=== PATIENT | male | born 1955 | race Hispanic/Latino ===

== ENCOUNTER → 2019-06-17 | Day surgery (SDC) | payer OTHER ==
[2019-06-14 08:33] LABS: BASOPHILS % 0.6 % (0.0-1.0); EOSINOPHILS # (AUTO) 0.2 (0.0-0.4); EOSINOPHILS % 3.5 % (0.0-6.0); HEMOGLOBIN 15.5 g/dL (14.0-18.0); LYMPHOCYTES % 37.2 % (18.0-39.1); MEAN CORPUSCULAR HEMOGLOBIN 31.2 pg (28-32); MEAN CORPUSCULAR HGB CONC 35.2 g/dL (31-35); MEAN CORPUSCULAR VOLUME 88.5 fL (81-99); MONOCYTES # (AUTO) 0.6 (0.2-0.8); MONOCYTES % 10.5 % (4.4-11.3); NEUTROPHILS # (AUTO) 2.6 (2.1-6.9); PLATELET COUNT 181 x10e3/uL (140-360); RED BLOOD COUNT 4.97 x10e6/uL (4.3-5.7); RED CELL DISTRIBUTION WIDTH 12.4 % (11.7-14.4)
[~2019-06-17] MED LIST: ALLOPURINOL300 MG PO; FENTANYL CITRATE/PF 100MCG/2 ML INJ ONE; GABAPENTIN300 MG PO; GLIMEPIRIDE2 MG PO; LIDOCAINE HCL 2% LOCAL INJ 5 ML SDV VIAL INJ ONE; LISINOPRIL2.5 MG PO; LOSARTAN POTASS25 MG PO; METFORMIN HCL500 MG PO; MIDAZOLAM HCL 2 MG/2 ML VIAL ONE; PRAVASTATIN SOD20 MG PO; PROPOFOL IV EMULSION 10 MG/ML 20 ML VIAL ONE
--- OUTSIDE RECORDS SUMMARY | 2019-06-17 05:26 | XMS REPORT ---
Author Author [facility] Organization [facility] Address Unknown Phone Unavailable Care Team Providers Care Rubber Compounder Supervisor Name Role Phone Unavailable Unavailable Problems This patient has no known problems. Allergies, Adverse Reactions, Alerts This patient has no known allergies or adverse reactions. Medications This patient has no known medications. Results Test Description Test Time Test Comments Text Results Atomic Results Result Comments SURGICAL SPECIMENS 2017-09-20 08:37:00 RUN DATE: 09/20/17 [facility] *LIVE* PAGE 1 RUN TIME: 0837 Specimen Inquiry RUN USER: INTERFACE PATIENT: BOBBY SCHOFIELD GOLDEN LOC: [facility] U #: [id number] AGE/SX: 61/M [place] [facility] [place] DR: Ladarius Redd MD : 51 BED: 1 DIS: 09/18/17 STATUS: DIS Shavon TLOC: SPEC #: [id number] RECD: 09/18/17 STATUS: KAELYN DEL RIO #: [id number] MIKE: 09/18/17 [facility] DR: Ladarius Redd MD ENTERED: 09/20/17 SP TYPE: SURG SPEC OTHR DR: Sandro Pantoja MD ORDERED: GM LEVEL 4 CODES: [id number] - VERTEBRA, NOS COPIES TO: Sandro Pantoja MD [address] [place], [place] [phone] [place] [id number] [facility] [address] [place], [place] [id number] PROCEDURES: GM LEVEL 4 (Incomplete) TISSUES: 1. VERTEBRA, NOS - Vertebral disc, C4-5 region, segments 2. VERTEBRA, NOS - Vertebral disc, C3-4 region, segment FINAL DIAGNOSIS Vertebral disc, C4-5 region, segments: Degenerative changes. Vertebral disc, C3-4 region, segments: Degenerative changes. GROSS AND MICROSCOPIC GROSS DESCRIPTION: Received in formalin and labeled "Disc C4-5" are multiple bautista fibrous and cartilaginous fragments measuring 1.5 cm in aggregate. Direct Sales Consultant sections (A). Received in formalin and labeled "Disc C3-4" are multiple bautista fibrous and cartilaginous fragments measuring 1.7 cm in aggregate. Direct Sales Consultant sections (B). MICROSCOPIC EXAMINATION: The cartilaginous matrix is focally cracked and has vacuolar change, and occasional chondrocytes are multinucleated. CONTINUED ON NEXT PAGE RUN DATE: 09/20/17 [facility] *LIVE* PAGE 2 RUN TIME: 836 Specimen Inquiry RUN USER: INTERFACE SPEC #: [id number] PATIENT: BOBBY SCHOFIELD #[id number] (Continued) POST-OP DIAGNOSIS Cervical post laminectomy sydnrome PRE-OP DIAGNOSIS Cervical post laminectomy sydnrome Signed SIGNATURE ON FILE Nancy Dias MD 09/20/17 0837 END OF REPORT
[2019-06-17 07:55] VITALS: BP 101/70
== END | disposition home or self-care (01) ==
LOC: OR 05:18
PROVIDERS: ATTEND Internal Medicine Gastroenterology
DX: K59.00 Constipation, unspecified (principal); Z86.010 Personal history of colon polyps; K29.50 Unspecified chronic gastritis without bleeding; K29.60 Other gastritis without bleeding; K21.9 Gastro-esophageal reflux disease without esophagitis; K57.30 Diverticulosis of large intestine without perforation or abscess without bleeding; K64.8 Other hemorrhoids; I10 Essential (primary) hypertension; K76.0 Fatty (change of) liver, not elsewhere classified; M06.9 Rheumatoid arthritis, unspecified; E11.9 Type 2 diabetes mellitus without complications; Z01.810 Encounter for preprocedural cardiovascular examination; Z01.812 Encounter for preprocedural laboratory examination; Z11.59 Encounter for screening for other viral diseases; Z80.0 Family history of malignant neoplasm of digestive organs
CPT/HCPCS: 36415; 43239; 45378; 82948; 85025; 87635; 88305; 88312; 93005; J2001; J2250; J3010

== ENCOUNTER 2019-09-29 14:37 | Inpatient (IN) | payer OTHER ==
[~2019-09-29] VITALS: Ht 177.8 cm; Wt 72.1 kg
[2019-09-29] VITALS (9 sets, daily range): BP systolic 119–153; BP diastolic 76–100
[~2019-09-29 14:37] MED LIST changes: -FENTANYL CITRATE/PF 100MCG/2 ML INJ ONE; -LIDOCAINE HCL 2% LOCAL INJ 5 ML SDV VIAL INJ ONE; -MIDAZOLAM HCL 2 MG/2 ML VIAL ONE; -PROPOFOL IV EMULSION 10 MG/ML 20 ML VIAL ONE
--- NOTE | 2019-09-29 14:54 | Emergency Department Note ---
History of Present Illnes History of Present Illness Chief Complaint: Chest Pain History of Present Illness This is a 63 year old male Chief Complaint Comment pt chest pain subste rnal non radiating. no sob. no n/v. recent covid neg for colonoscopy done here in august. pt aaox4. ambulatory. hx htn and dm. Historian: Patient Arrival Mode: Car Budget Examiner Required: No Onset (how long ago): day(s) (2) Location: Sternal Quality: Dull Radiation: Reports non-radiation Severity: moderate Onset quality: gradual Duration (how long): day(s) (2) Timing of current episode: constant Progression: unchanged Chronicity: new Context: Denies recent illness Relieving factors: none Exacerbating factors: none Associated symptoms: Reports denies other symptoms Treatments prior to arrival: none Past Medical/Family History Physician Review I have reviewed the patient's past medical and family history. Any updates have been documented here. Past Medical History Recent Fever: No Clinical Suspicion of Infectio: No New/Unexplained Change in Ment: No Past Medical History: Hypertension, Diabetes Other Surgery: BACK X2 NECK FUSION L KNEE ACL CARPAL TUNNEL BILAT L TOE Social History Smoking Cessation: Unknown if ever smoked Counseling Performed: No Alcohol Use: None Any Illegal Drug Use: No Other Last Tetanus: 2013 Any Pre-Existing Lines (PICC,: No Review of Systems Review of Systems Constitutional: Reports no symptoms EENTM: Reports no symptoms Cardiovascular: Reports as per HPI, Reports chest pain Respiratory: Reports no symptoms Gastrointestinal: Reports no symptoms Genitourinary: Reports no symptoms Musculoskeletal: Reports no symptoms Integumentary: Reports no symptoms Neurological: Reports no symptoms Psychological: Reports no symptoms Endocrine: Reports no symptoms Hematological/Lymphatic: Reports no symptoms Physical Exam Related Data Allergies: Coded Allergies: No Known Allergies (Verified , 12/28/09) Triage Vital Signs Vital Signs Date Time Temp Pulse Resp B/P (MAP) Pulse Ox O2 Delivery O2 Flow Rate FiO2 09/29/19 14:46 98.7 110 16 168/95 100 Room Air Vital signs reviewed: Yes Physical Exam CONSTITUTIONAL Constitutional: Present well-developed, Present well-nourished HENT HENT: Present normocephalic, Present atraumatic, Present oropharynx clear/moist, Present nose normal HENT L/R: Present left ext ear normal, Present right ext ear normal EYES Eyes: Reports PERRL, Reports conjunctivae normal NECK Neck: Present ROM normal PULMONARY Pulmonary: Present effort normal, Present breath sounds normal CARDIOVASCULAR Cardiovascular: Present regular rhythm, Present heart sounds normal, Present capillary refill normal, Present normal rate GASTROINTESTINAL Abdominal: Present soft, Present nontender, Present bowel sounds normal GENITOURINARY Genitourinary: Present exam deferred SKIN Skin: Present warm, Present dry MUSCULOSKELETAL Musculoskeletal: Present ROM normal NEUROLOGICAL Neurological: Present alert, Present oriented x 3, Present no gross motor or sensory deficits PSYCHOLOGICAL Psychological: Present mood/affect normal, Present judgement normal Procedures 12 Lead ECG Interpretation ECG Interpretation : Budget Examiner: Interpreted by ED physician Date: Sep 29, 2019 Prior ECG tracings: reviewed Rhythm: sinus rhythm Rate: tachycardia BPM: 111 QRS axis: left ST segment elevation: III T waves normal: Yes Clinical Impression: abnormal ECG Assessment & Plan Medical Decision Making MDM 63-year-old male history of hypertension diabetes presents for substernal chest pain onset yesterday. No cardiac history. EKG shows mild elevation in lead 3 but no reciprocal changes. Troponin is elevated at 0.9. He was given aspirin, heparin, Plavix, atorvastatin, Beta Cinthia as per recommendation of Dr. Saab. Patient was discussed with Dr. Ramirez and will admit for NSTEMI. Reassessment Reassessment time: 14:54 Reassessment Wel sania, NAD Assessment & Plan Final Impression: (1) NSTEMI (non-ST elevated myocardial infarction) Depart Disposition: ADMITTED Last Vital Signs Date Time Temp Pulse Resp B/P (MAP) Pulse Ox O2 Delivery O2 Flow Rate FiO2 09/29/19 14:46 98.7 110 16 168/95 100 Room Air Home Meds Reported Medications Lisinopril (LISINOPRIL) 2.5 Mg Tablet, 2.5 MG PO HS, #30 TAB 06/11/19 Pravastatin Sodium (PRAVASTATIN SODIUM) 20 Mg Tablet, 20 MG PO DAILY 06/11/19 Losartan Potassium (LOSARTAN POTASSIUM) 25 Mg Tablet, 25 MG PO HS 06/11/19 Glimepiride (GLIMEPIRIDE) 2 Mg Tablet, 1 MG PO DAILY, TAB 06/11/19 Metformin Hcl (METFORMIN HCL) 500 Mg Tablet, 500 MG PO DAILY, #60 TAB 06/11/19 Allopurinol (ALLOPURINOL) 300 Mg Tablet, 300 MG PO DAILY, #30 TAB 06/11/19 Gabapentin (GABAPENTIN) 300 Mg Capsule, 600 MG PO TID, #60 CAP 06/11/19 ROLLY JAMES MD Sep 29, 2019 14:54
[2019-09-29 14:58] LABS: BASOPHILS % 0.4 % (0.0-1.0); EOSINOPHILS # (AUTO) 0.1 (0.0-0.4); HEMATOCRIT 45.3 % (38.2-49.6); HEMOGLOBIN 16.1 g/dL (14.0-18.0); LYMPHOCYTES # (AUTO) 2.3 (1.0-3.2); LYMPHOCYTES % 20.9 % (18.0-39.1); MEAN CORPUSCULAR HEMOGLOBIN 30.7 pg (28-32); MEAN CORPUSCULAR HGB CONC 35.5 g/dL (31-35); MEAN CORPUSCULAR VOLUME 86.3 fL (81-99); MONOCYTES # (AUTO) 0.6 (0.2-0.8); MONOCYTES % 5.8 % (4.4-11.3); NEUTROPHILS # (AUTO) 7.8 (2.1-6.9); NEUTROPHILS % 71.4 % (38.7-80.0); PLATELET COUNT 217 x10e3/uL (140-360); RED BLOOD COUNT 5.25 x10e6/uL (4.3-5.7); RED CELL DISTRIBUTION WIDTH 12.5 % (11.7-14.4)
[2019-09-29] MEDS ORDERED: ASPIRIN 81 MG CHEW TAB PO ONE (15:00)
[2019-09-29] MEDS ORDERED: SODIUM CHLORIDE 0.9% 1000ML 1,000 ML IV SCH (15:15)
[2019-09-29 15:18] LABS: ALANINE AMINOTRANSFERASE 31 IU/L (0-55); ALBUMIN 4.1 g/dL (3.5-5.0); ALBUMIN/GLOBULIN RATIO 1.2 (0.8-2.0); ALKALINE PHOSPHATASE 119 IU/L (40-150); ANION GAP 15.6 mmol/L (8-16); BLOOD UREA NITROGEN 12 mg/dL (7-26); BUN/CREATININE RATIO 11 (6-25); CALCIUM 9.2 mg/dL (8.4-10.2); CARBON DIOXIDE 24 mmol/L (22-29); CHLORIDE 100 mmol/L (98-107); CREATININE, SERUM 1.05 mg/dL (0.72-1.25); EST GLOMERULAR FILTRATION RATE > 60 ML/MIN (60-); POTASSIUM 3.6 mmol/L (3.5-5.1); SODIUM 136 mmol/L (136-145)
[2019-09-29 15:20] LABS: GLUCOSE 404 mg/dL (74-118)
--- NOTE | 2019-09-29 15:25 | Diagnostic Imaging Report ---
TECHNIQUE: Frontal view of the chest. INDICATION: ^cp ^[id number] ^[id number] COMPARISON: None DISCUSSION: Limited evaluation due to portable technique. Lines and hardware: Overlying EKG leads are noted. Heart and mediastinum: Cardiomediastinal silhouette is of normal size. Trachea projects midline. Lungs and pleura: No focal airspace consolidation. No pleural effusion. No pneumothorax. Soft tissues and bones: No acute abnormality. IMPRESSION: Negative for acute intrathoracic process. Signed by: Man Joel MD on 09/29/2019 3:22 PM
[2019-09-29 16:00] LABS: INR 0.92; PROTHROMBIN TIME 12.8 seconds (11.9-14.5)
[2019-09-29] MEDS ORDERED: HEPARIN SOD (PORCINE) 5,000 UNIT/ML VIAL IV ONE (16:00)
[2019-09-29] MEDS ORDERED: CLOPIDOGREL BISULFATE 75 MG TAB PO ONE (16:00)
[2019-09-29] MEDS ORDERED: HEPARIN 25,000 UNIT 25,000 UNIT in DEXTROSE 5% 250ML 250 ML IV ONE (16:00)
[2019-09-29 16:01] LABS: PARTIAL THROMBOPLASTIN TIME 32.6 seconds (23.8-35.5)
[2019-09-29] MEDS ORDERED: ONDANSETRON HCL INJ 2MG/ML 2ML 2 MG/ML VIAL IV PRN (16:30)
[2019-09-29] MEDS: DEXTROSE 5% IV SCH (16:47)
[2019-09-29] MEDS: HEPARIN IV SCH (16:47)
[2019-09-29] MEDS ORDERED: MORPHINE SULFATE INJ 4 MG/ML INJ 1ML IV PRN (17:00)
--- NOTE | 2019-09-29 19:00 | NUR ---
Report received. Assumed care. Assessment done. See interventions. Heparin infusing @ 8.4 ml/hr or 840 units/hr.
--- NOTE | 2019-09-29 20:00 | NUR ---
Call to Dr. Ramirez re: blood sugars.
--- NOTE | 2019-09-29 20:42 | NUR ---
Florinda . Called to answering service. left voicemail.
[2019-09-29] MEDS ORDERED: DEXTROSE 50% SYRINGE 50 ML IV PRN (20:45)
--- NOTE | 2019-09-29 20:55 | NUR ---
Dr. Moore returned call. Orders given.
[2019-09-29] MEDS: INSULIN REGULAR, HUMAN 100 UNIT/1 ML 3ML VIAL SQ SCH (21:12)
[2019-09-29] MEDS ORDERED: INSULIN GLARGINE 100 UNITS/ML VIAL SQ ONE (21:30)
--- NOTE | 2019-09-29 23:10 | NUR ---
PTT 68.2. No change in heparin drip.
[2019-09-30] VITALS (31 sets, daily range): BP systolic 100–139; BP diastolic 64–96
--- NOTE | 2019-09-30 04:40 | NUR ---
PTT 58.7. Therapeutic. No changes in Heparin.
[2019-09-30] MEDS ORDERED: VERAPAMIL HCL 2.5 MG/ML 2 ML VIAL ONE (06:56)
[2019-09-30] MEDS ORDERED: MIDAZOLAM HCL 2 MG/2 ML VIAL ONE ×2 (06:56→08:36)
[2019-09-30] MEDS ORDERED: HEPARIN SOD (PORCINE) 1000 UNIT/ML 30ML ONE (06:56)
[2019-09-30] MEDS ORDERED: FENTANYL CITRATE/PF 100MCG/2 ML INJ ONE (06:57)
[2019-09-30] MEDS ORDERED: LIDOCAINE HCL 2% LOCAL 20 ML VIAL ONE (06:57)
[2019-09-30] MEDS ORDERED: IOPAMIDOL 370 MG/ML 200 ML INFUS..BTL INJ ONE ×2 (06:58→08:48)
[2019-09-30] MEDS ORDERED: SODIUM CHLORIDE 0.9% 1000ML 1,000 ML ONE (06:58)
[2019-09-30] MEDS ORDERED: NITROGLYCERIN/D5W 200 MCG/ML 250 ML ONE (06:58)
[2019-09-30] MEDS ORDERED: HEPARIN SOD/SOD CHLORIDE 2,000 ML ONE (06:58)
[2019-09-30] MEDS: INSULIN REGULAR, HUMAN 100 UNIT/1 ML 3ML VIAL SQ SCH ×4 (07:30→20:38)
[2019-09-30] MEDS ORDERED: CARVEDILOL 12.5 MG TAB PO SCH ×2 (09:00→17:00)
--- NOTE | 2019-09-30 10:11 | Consultation ---
DATE OF CONSULTATION: Cardiology Consultation. HISTORY OF PRESENT ILLNESS: This is a 63-year-old man with a history of hypertension, hyperlipidemia, and diabetes mellitus, who presented to the emergency department with moderate to severe substernal chest discomfort with no radiation progressively worsened over the last two days without any other exacerbating or relieving factors. He was taken to the hemodialysis lab technician and was found to have triple-vessel disease. He is currently feeling well and is stable and denies any ongoing current cardiovascular symptoms. REVIEW OF SYSTEMS: A 12-point review of system was conducted and is negative as stated above in the HPI. PAST MEDICAL HISTORY: As stated above in the HPI. PAST SURGICAL HISTORY: Laminectomies, colonoscopies, coronary angiography. FAMILY HISTORY: No premature coronary artery disease and cardiac . SOCIAL HISTORY: No illicit drug, alcohol, or tobacco use. ALLERGIES: NO KNOWN DRUG ALLERGIES. MEDICATIONS: See medications reconciliation form. PHYSICAL EXAMINATION: VITAL SIGNS: Temperature is 100.1, heart rate is 95, respirations are 19, blood pressure is 117/76, ox saturation 96% on room air. GENERAL: Well-appearing, well-built, in no apparent distress. Alert and oriented x3. HEAD: Normocephalic and atraumatic. EYES: Extraocular muscles are intact. Conjunctivae clear. NECK: No JVD. No bruits. CARDIOVASCULAR: Regular rate and rhythm. LUNGS: Clear to auscultation. ABDOMEN: Soft, nontender, nondistended. EXTREMITIES: No clubbing, cyanosis, or edema. VASCULAR: 2+ pulses. SKIN: Warm, dry, and intact. NEUROLOGIC: No focal deficits noted. Cranial nerves grossly intact. PSYCHIATRIC: Normal mood and affect. LABORATORY DATA: All laboratory data reviewed shows white blood cell count of 10.9, hemoglobin is 16, platelets 217,000. Creatinine is 1.05, glucose is 168, peak troponin is 15.9. Chest x-ray shows no acute cardiopulmonary abnormality. A 12-lead electrocardiogram showed normal sinus rhythm with nonspecific ST-T wave abnormalities. IMPRESSION: 1. Fwc-KV-amcifsyds myocardial infarction. 2. Multivessel coronary artery disease. 3. Hypertension. 4. Hyperlipidemia. 5. Diabetes mellitus. RECOMMENDATIONS: The patient will need to be transferred to a facility that can provide bypass surgery. He is hemodynamically stable. We will continue heparin infusion. Hold clopidogrel. Continue aspirin and high-dose statin. We will start beta blockers as well. We will continue to follow along with you. We will check carotid artery Dopplers and echocardiogram. DO YESENIA Brown/DAMIÁN /[id number]
--- NOTE | 2019-09-30 11:37 | Operative Report ---
DATE OF PROCEDURE: 09/30/2019 SURGEON: Hakeem Moore DO PROCEDURES PERFORMED: 1. Conscious sedation 30 minutes. 2. Selective coronary angiography x2. 3. Left heart catheterization. 4. Left ventriculography. 5. Attempted percutaneous transluminal angioplasty of the right coronary artery. PREPROCEDURE DIAGNOSIS: Bna-YL-xkkjgvjua myocardial infarction. POSTPROCEDURE DIAGNOSIS: Multivessel coronary artery disease. ESTIMATED BLOOD LOSS: Less than 20 mL. SPECIMENS REMOVED: None. PROCEDURE IN DETAIL: After informed consent was obtained, the patient was brought to the cardiac catheterization laboratory in a fasting and nonsedated state. Bilateral groins were prepped and draped in usual sterile fashion. A 2% lidocaine was infiltrated over the right anterior groin for local anesthesia. The patient received fentanyl and midazolam administered by the medical laboratory technologist nurse and his neurologic and physiologic status was monitored by myself and medical laboratory technologist staff for 30 minutes. Next, using a micropuncture needle, the right common femoral artery was accessed via the modified Seldinger technique and a 5-Gabonese sheath was placed. Next, diagnostic coronary angiography and left heart catheterization were performed. The patient had an occluded posterior descending coronary artery and a decision was made to possibly perform angioplasty. The patient was upsized to a 6-Gabonese sheath. He received heparin. Right coronary artery was cannulated with a 3DRC guide catheter. Next, I tried to cross the subtotally occluded mid RCA with a whisper and a Fielder XT wire with backup over the wire balloon support. This proved to be unsuccessful. Everything was removed from the body. A Mynx device was used for hemostasis. The patient tolerated the procedure well. No immediate complications and transferred back to his room in stable condition. PROCEDURAL FINDINGS: 1. Left main coronary artery is patent without significant disease. 2. The proximal LAD has a long diffuse 60% stenosis. At the takeoff of a small 1st diagonal branch, there is a severe 90% stenosis. The distal LAD itself is patent with only luminal irregularities and is medium sized. 3. The ramus intermedius coronary artery is patent with luminal irregularities. 4. Left circumflex coronary provides two obtuse marginal vessels. The 1st of which has a 70% ostial stenosis. 5. The right coronary artery has a subtotal 99% occlusion in the midportion. This provides a posterior lateral branch. The PDA itself is occluded at its ostium and there is thrombus seen in the very distal portion of the PDA. 6. Left ventricular end-diastolic pressure was 15 mmHg. No aortic valve gradient present upon pullback. 7. Left ventriculography showed ejection fraction of 60-65%. IMPRESSION: Multivessel coronary artery disease in a patient who has diabetes mellitus after presenting with a non-ST elevation myocardial infarction. RECOMMENDATIONS: The patient will be placed on optimal medical therapy, his clopidogrel will be held, he will be placed back on heparin infusion, and he will be transferred for bypass surgery. DO YESENIA Brown/MODL /[id number]
--- NOTE | 2019-09-30 15:00 | NUR ---
Orders from Dr Chivo Moore is to start the heparin drip at previous settings 840 units/hr, no bolus at 6 hours post end greens laborer, which is 3 pm. PTT at 2100.
[2019-09-30] MEDS: HEPARIN IV SCH (15:16)
[2019-09-30] MEDS: DEXTROSE 5% IV SCH (15:16)
[2019-09-30] MEDS ORDERED: CARVEDILOL 3.125 MG TAB PO SCH (18:00)
--- NOTE | 2019-09-30 18:23 | NUR ---
Report called to [facility]. Cardiac IMU room 342. [phone], nurse Bernardo.
--- NOTE | 2019-09-30 19:00 | NUR ---
Report received. Assumed care. Assessment done. See interventions. Heparin @ 840 units/hr.
--- NOTE | 2019-09-30 20:03 | NUR ---
PTT 47.7. Increased Heparin to 940 units/hr.
[2019-09-30] MEDS ORDERED: ATORVASTATIN 40 MG TAB PO SCH (21:00)
--- NOTE | 2019-09-30 21:54 | NUR ---
Transferred per EMS to [facility].
[2019-10-01] MEDS ORDERED: ASPIRIN 81 MG CHEW TAB PO SCH (09:00)
== END 2019-09-30 21:54 | disposition short-term general hospital (02) | DRG 247 ==
LOC: ER 14:52 → ERHOLD 16:43 → ICU 17:07
PROC: 027034Z Dilation of Coronary Artery, One Artery with Drug-eluting Intraluminal Device, Percutaneous Approach (ICD-10-PCS; principal; 2019-09-30)
PROC: 4A023N7 Measurement of Cardiac Sampling and Pressure, Left Heart, Percutaneous Approach (ICD-10-PCS; 2019-09-30)
PROC: B2111ZZ Fluoroscopy of Multiple Coronary Arteries using Low Osmolar Contrast (ICD-10-PCS; 2019-09-30)
DX: I21.4 Non-ST elevation (NSTEMI) myocardial infarction (principal); E78.5 Hyperlipidemia, unspecified; E11.9 Type 2 diabetes mellitus without complications; I10 Essential (primary) hypertension; I25.10 Atherosclerotic heart disease of native coronary artery without angina pectoris
CPT/HCPCS: 36415; 71045; 80053; 82948; 83880; 84484; 85025; 85379; 85610; 85730; 92920; 93005; 93306; 93458; 93880; 96372; 99152; 99153; C1760; C1769; J1644; J1815; J1817; J2001; J2250; J3010; J7030; Q9967; U0002

== ENCOUNTER → 2021-05-07 | Outpatient (CLI) | payer OTHER | LOC: US 12:10 | PROVIDERS: ATTEND Otolaryngology Pediatric Otolaryngology | DX: D37.030 Neoplasm of uncertain behavior of the parotid salivary glands (principal) | CPT/HCPCS: 10005; 88112; 88172; 88173; 88300 ==